=== PATIENT | female | born 1940 | race Caucasian/White ===

== ENCOUNTER 2017-04-11 15:22 | Inpatient (IN) ==
[2017-04-11 17:33] LABS: Basophils % 0.7 % (0.0-0.8); Eosinophils # 0.2 10*3/uL (0.0-0.87); Eosinophils % 3.6 % (0.00-10.9); Hematocrit 40.6 VOL% (35.7-47.0); Hemoglobin 12.8 GM/DL (12.0-16.0); Immature Granulocytes % 0.3 %; Immature Granulocytes Absolute 0.02 #; Lymphocytes # 1.4 10*3/uL (1.4-4.0); Lymphocytes % 23.7 % (21.3-54.2); Mean Corpuscular HGB Conc 31.5 GM/DL (32-36); Mean Corpuscular Hemoglobin 28 PG (27-34); Mean Corpuscular Volume 89.2 FL (87-102); Mean Platelet Volume 9.5 FL (9.6-12.0); Monocytes # 0.6 10*3/uL (0.11-0.8); Monocytes % 9.6 % (1.7-12.7); Neutrophils # 3.6 10*3/uL (1.4-7.4); Neutrophils % 62.1 % (38.7-73.9); Platelet Count 246 T/CUMM (130-400); Red Blood Count 4.55 MC/CUMM (3.8-5.5); Red Cell Distribution Width 13.8 % (9.3-17.3); White Blood Count 5.8 T/CUMM (4-12)
[2017-04-11] MEDS ORDERED: ASPIRIN 325 MG TABLET PO STA (17:42)
[2017-04-11] MEDS ORDERED: NITROGLYCERIN 2% OINT 1 INCH/GM PACK TOP STA (17:42)
[2017-04-11] MEDS ORDERED: METOPROLOL TARTRATE 25 MG TABLET PO STA (17:42)
[2017-04-11] MEDS ORDERED: MORPHINE 2 MG/1 ML SYRINGE IV STA (17:42)
[2017-04-11 17:47] LABS: Albumin 3.9 G/DL (3.4-5.0); Bilirubin,Total 0.4 MG/DL (0.2-1.0); Calcium 9.3 MG/DL (8.5-10.1); Magnesium 1.5 MG/DL (1.8-2.4); Osmolality,Calculated 286.5 MOS/KG (273-304); PT Patient Result 10.6 SECS; Partial Thromboplastin Time 24.1 SECS (0-40); Potassium 4.8 MMOL/L (3.5-5.1); Total Protein 6.9 G/DL (6.4-8.3)
[2017-04-11] MEDS ORDERED: ASPIRIN 325 MG TABLET ONE (17:57)
[2017-04-11] MEDS ORDERED: METOPROLOL TARTRATE 25 MG TABLET ONE (17:57)
[2017-04-11] MEDS ORDERED: NITROGLYCERIN 2% OINT 1 INCH/GM PACK TOP ONE (17:57)
[2017-04-11] MEDS ORDERED: MAGNESIUM SULF RIDER 2 GM in PREMIX 1 EACH IV STA (18:00)
[2017-04-11] MEDS ORDERED: MAGNESIUM SULF RIDER 50 ML IV ONE (18:19)
[2017-04-11 18:33] LABS: Apearance,Urine CLOUDY (Clear); Bacteria,Urine Occasional /HPF (Few); Blood, Urine Negative (Negative); Glucose,Urine (UA) 50 mg/dL (Negative); Granular Casts,Urine 1 /LPF (0-1); Hyaline Casts,Urine 66 /LPF (0-3); Ketones,Urine 5 mg/dL (Negative); Mucus,Urine Occasional /LPF (Occasional); Nitrite,Urine Negative (Negative); Protein,Urine Negative; RBC,Urine 1 /HPF (0-4); Squamous Epithelial Cell,Urine Occasional /HPF (0-10); Urine Color Amber (Yellow); Urine Specific Gravity 1.021 (1.001-1.035); WBC,Urine 5 /HPF (0-6)
[2017-04-11 18:34] LABS: Bilirubin,Urine Small mg/dL (Negative)
[2017-04-11] MEDS ORDERED: cefTRIAXone 1,000 MG in SODIUM CHLORIDE 0.9% 100 ML IV STA (18:40)
[2017-04-11] MEDS ORDERED: cefTRIAXone 1,000 MG VIAL ONE (18:42)
[2017-04-11] MEDS ORDERED: MAGNESIUM SULF RIDER 4 GM in PREMIX 1 EACH IV PRN (19:22)
[2017-04-11] MEDS ORDERED: MORPHINE 10 MG/1 ML VIAL IV PRN (19:22)
[2017-04-11] MEDS ORDERED: GLUCAGON 1 MG VIAL IM PRN (19:22)
[2017-04-11] MEDS ORDERED: POTASSIUM CHLORIDE 20 MEQ TABLET PO PRN (19:22)
[2017-04-11] MEDS ORDERED: PROMETHAZINE 25 MG TABLET PO PRN (19:22)
[2017-04-11] MEDS ORDERED: NITROGLYCERIN SL 0.4 MG TABLET SL PRN (19:22)
[2017-04-11] MEDS ORDERED: MAGNESIUM SULF RIDER 2 GM in PREMIX 1 EACH IV PRN (19:22)
[2017-04-11] MEDS ORDERED: ALBUTEROL 2.5 MG/3 ML NEB RESP TX PRN (19:22)
[2017-04-11] MEDS ORDERED: NON-FORMULARY MEDICATION (Albuterol Sulfate [Proair Hfa] 2 PUFF) INH PRN (19:22)
[2017-04-11] MEDS ORDERED: SODIUM CHLORIDE 0.9% 1,000 ML IV SCH (19:22)
[2017-04-11] MEDS ORDERED: DEXTROSE 50% 25 GM/50 ML VIAL IV PRN (19:22)
[2017-04-11] MEDS ORDERED: BUDESONIDE 0.5 MG/2 ML NEB RESP TX PRN (19:22)
[2017-04-11] MEDS ORDERED: CYANOCOBALAMIN 1000 MCG/1 ML VIAL IM SCH (19:30)
[2017-04-11] MEDS ORDERED: MORPHINE 10 MG/1 ML VIAL ONE (20:01)
[2017-04-11] MEDS ORDERED: ATORVASTATIN 40 MG TABLET PO SCH (21:00)
[2017-04-11] MEDS ORDERED: FERROUS SULFATE 325 MG TABLET PO SCH (21:00)
[2017-04-11] MEDS ORDERED: DONEPEZIL 10 MG TABLET PO SCH (21:00)
[2017-04-11] MEDS ORDERED: MONTELUKAST 10 MG TABLET PO SCH (21:00)
[2017-04-11] MEDS: INSULIN REGULAR 100 UNIT/ML SUBCUT SCH (22:16)
[2017-04-11] MEDS ORDERED: ATORVASTATIN 40 MG TABLET ONE (22:19)
[2017-04-11] MEDS: metFORMIN 500 MG TABLET PO SCH (22:23)
[2017-04-11] MEDS: MAGNESIUM OXIDE 400 MG TABLET PO SCH (22:23)
[2017-04-11] MEDS: PANTOPRAZOLE 40 MG TABLET PO SCH (22:24)
[2017-04-12 04:57] LABS: Basophils % 0.4 % (0.0-0.8); Eosinophils # 0.2 10*3/uL (0.0-0.87); Eosinophils % 2.7 % (0.00-10.9); Hematocrit 39.5 VOL% (35.7-47.0); Hemoglobin 12.5 GM/DL (12.0-16.0); Immature Granulocytes % 0.4 %; Immature Granulocytes Absolute 0.02 #; Lymphocytes # 1.3 10*3/uL (1.4-4.0); Lymphocytes % 23.6 % (21.3-54.2); Mean Corpuscular HGB Conc 31.6 GM/DL (32-36); Mean Corpuscular Hemoglobin 28 PG (27-34); Mean Corpuscular Volume 89.6 FL (87-102); Mean Platelet Volume 9.8 FL (9.6-12.0); Monocytes # 0.5 10*3/uL (0.11-0.8); Monocytes % 9.6 % (1.7-12.7); Neutrophils # 3.6 10*3/uL (1.4-7.4); Neutrophils % 63.3 % (38.7-73.9); Platelet Count 220 T/CUMM (130-400); Red Blood Count 4.41 MC/CUMM (3.8-5.5); Red Cell Distribution Width 13.9 % (9.3-17.3); White Blood Count 5.6 T/CUMM (4-12)
[2017-04-12 05:07] LABS: Albumin 3.6 G/DL (3.4-5.0); Bilirubin,Total 0.4 MG/DL (0.2-1.0); Calcium 9.2 MG/DL (8.5-10.1); Magnesium 2.1 MG/DL (1.8-2.4); Osmolality,Calculated 280.8 MOS/KG (273-304); Potassium 4.4 MMOL/L (3.5-5.1); Risk Ratio 2.69; Total Protein 6.8 G/DL (6.4-8.3); VLDL CHOLESTEROL 14.4 MG/DL
[2017-04-12] MEDS: NITROGLYCERIN 2% OINT 1 INCH/GM PACK TOP SCH ×2 (06:42→06:45)
[2017-04-12] MEDS ORDERED: NITROGLYCERIN 2% OINT 1 INCH/GM PACK TOP ONE (06:45)
[2017-04-12] MEDS: IPRATROPIUM 500 MCG/2.5 ML NEB RESP TX SCH ×2 (07:41→11:40)
[2017-04-12] MEDS: INSULIN REGULAR 100 UNIT/ML SUBCUT SCH ×2 (07:51→11:44)
[2017-04-12] MEDS ORDERED: PANTOPRAZOLE 40 MG TABLET PO SCH (09:00)
[2017-04-12] MEDS ORDERED: BISOPROLOL/HCTZ 2.5-6.25 MG TABLET PO SCH ×2 (09:00→12:00)
[2017-04-12] MEDS ORDERED: ASPIRIN EC 81 MG TABLET PO SCH (09:00)
[2017-04-12] MEDS ORDERED: PARoxetine 20 MG TABLET PO SCH (09:00)
[2017-04-12] MEDS ORDERED: REGADENOSON 0.4 MG/5 ML SYRINGE IV ONE (10:13)
[2017-04-12 11:34] VITALS: BP 140/67
[2017-04-12] MEDS ORDERED: ALUM/MAG/SIMETH/LIDO VISC 1:1 30 ML BOTTLE PO STA (11:35)
[2017-04-12] MEDS: MAGNESIUM OXIDE 400 MG TABLET PO SCH (11:43)
[2017-04-12] MEDS: metFORMIN 500 MG TABLET PO SCH (11:43)
[2017-04-12] MEDS: PANTOPRAZOLE 40 MG TABLET PO SCH (11:43)
[2017-04-12] MEDS ORDERED: SIMETHICONE CHEW 80 MG TABLET PO SCH (13:00)
[2017-04-12] MEDS ORDERED: NITROFURANTOIN MACRO/MONO 100 MG CAPSULE PO SCH (13:00)
[2017-04-12] MEDS ORDERED: RIVAROXABAN 20 MG TABLET PO SCH (17:00)
== END 2017-04-12 14:34 | disposition home or self-care (01) | DRG 392 ==
LOC: N.ED 15:22 → N.EDINP 18:57 → N.TELES 04-12 13:30
PROVIDERS: ADMIT Internal Medicine Cardiovascular Disease; ATTEND Internal Medicine Cardiovascular Disease

== ENCOUNTER 2018-11-22 16:02 | Inpatient (IN) ==
[2018-11-22] MEDS ORDERED: VANCOMYCIN INJ 1,000 MG in SODIUM CHLORIDE 0.9% 250 ML IV STA (17:19)
[2018-11-22] MEDS ORDERED: METOCLOPRAMIDE 10 MG/2 ML VIAL IV STA (17:19)
[2018-11-22] MEDS ORDERED: fentaNYL 100 MCG/2 ML VIAL IV STA (17:19)
[2018-11-22] MEDS: VANCOMYCIN INJ 1,000 MG in SODIUM CHLORIDE 0.9% 250 ML IV STA ×2 (17:28→18:11)
[2018-11-22 18:11] LABS: Basophils % 0.5 % (0.0-0.8); Eosinophils # 0.3 10*3/uL (0.0-0.87); Eosinophils % 3.5 % (0.00-10.9); Hematocrit 39.2 VOL% (35.7-47.0); Hemoglobin 12.5 GM/DL (12.0-16.0); Immature Granulocytes % 0.4 %; Immature Granulocytes Absolute 0.03 #; Lymphocytes # 1.4 10*3/uL (1.4-4.0); Lymphocytes % 17.9 % (21.3-54.2); Mean Corpuscular HGB Conc 31.9 GM/DL (32-36); Mean Corpuscular Volume 90.7 FL (87-102); Mean Platelet Volume 9.7 FL (9.6-12.0); Monocytes % 8.9 % (1.7-12.7); Neutrophils % 68.8 % (38.7-73.9); Platelet Count 206 T/CUMM (130-400); Red Blood Count 4.32 MC/CUMM (3.8-5.5); Red Cell Distribution Width 12.6 % (9.3-17.3); White Blood Count 7.7 T/CUMM (4-12)
[2018-11-22 18:21] LABS: INR 0.9; PT Patient Result 10.1 SECS
[2018-11-22 18:49] LABS: Alanine Aminotransferase 782 U/L (13-56); Albumin 3.5 G/DL (3.4-5.0); Alkaline Phosphatase 216 U/L (45-117); Aspartate Amino Transferase 183 U/L (0-37); Blood Urea Nitrogen 16 MG/DL (7-18); Calcium 9.4 MG/DL (8.5-10.1); Glucose 290 MG/DL (74-106); Osmolality,Calculated 292.3 MOS/KG (273-304); Total Protein 7.3 G/DL (6.4-8.3); Troponin I < 0.015 NG/ML (0.00-0.045)
[2018-11-22 19:17] LABS: Apearance,Urine CLEAR (Clear); Bilirubin,Urine Negative (Negative); Blood, Urine Negative (Negative); Glucose,Urine (UA) >=500 mg/dL (Negative); Ketones,Urine Negative (Negative); Mucus,Urine Occasional /LPF (Occasional); Nitrite,Urine Negative (Negative); Protein,Urine Negative; RBC,Urine 1 /HPF (0-4); Squamous Epithelial Cell,Urine Occasional /HPF (0-10); Urine Color Yellow (Yellow); Urine Specific Gravity 1.006 (1.001-1.035); Urine Urobilinogen < 2.0 EU/DL (0.2-1.0); WBC,Urine 12 /HPF (0-6)
[2018-11-22 19:45] LABS: Sedimentation Rate-Westergren 43 MM/HR (0-30)
[2018-11-22] MEDS ORDERED: NITROGLYCERIN SL 0.4 MG TABLET SL PRN (21:04)
[2018-11-22] MEDS ORDERED: GLUCAGON 1 MG VIAL IM PRN ×2 (21:07)
[2018-11-22] MEDS ORDERED: DEXTROSE 50% 25 GM/50 ML VIAL IV PRN ×2 (21:07)
[2018-11-22] MEDS ORDERED: MORPHINE 4 MG/1 ML VIAL IV PRN (21:07)
[2018-11-22] MEDS ORDERED: PROMETHAZINE INJ 12.5 MG in SODIUM CHLORIDE 0.9% 50 ML IV PRN (21:15)
[2018-11-23] MEDS: ALBUTEROL/IPRATROPIUM 3 ML NEB RESP TX SCH ×4 (00:16→18:58)
[2018-11-23] MEDS: FAMOTIDINE 20 MG TABLET PO SCH ×2 (00:59→21:35)
[2018-11-23] MEDS: DONEPEZIL 10 MG TABLET PO SCH ×2 (00:59→21:35)
[2018-11-23] MEDS: NORTRIPTYLINE 10 MG CAPSULE PO SCH ×2 (00:59→21:40)
[2018-11-23] MEDS: PIPERACILLIN/TAZOBACTAM 3,375 MG in SODIUM CHLORIDE 0.9% 100 ML IV SCH ×3 (01:02→16:08)
[2018-11-23] MEDS: SODIUM CHLORIDE 0.45% 1,000 ML IV SCH ×2 (01:11→23:27)
[2018-11-23] MEDS: RIVAROXABAN 2.5 MG TABLET PO SCH ×3 (01:12→21:40)
[2018-11-23 05:15] LABS: Basophils % 0.6 % (0.0-0.8); Eosinophils # 0.3 10*3/uL (0.0-0.87); Eosinophils % 4.8 % (0.00-10.9); Hematocrit 35.3 VOL% (35.7-47.0); Hemoglobin 11.4 GM/DL (12.0-16.0); Immature Granulocytes % 0.4 %; Immature Granulocytes Absolute 0.02 #; Mean Corpuscular HGB Conc 32.3 GM/DL (32-36); Mean Corpuscular Volume 90.3 FL (87-102); Mean Platelet Volume 10.3 FL (9.6-12.0); Monocytes % 10.2 % (1.7-12.7); Platelet Count 184 T/CUMM (130-400); Red Blood Count 3.91 MC/CUMM (3.8-5.5); Red Cell Distribution Width 12.8 % (9.3-17.3); White Blood Count 5.2 T/CUMM (4-12)
[2018-11-23 05:46] LABS: Calcium 8.9 MG/DL (8.5-10.1); Osmolality,Calculated 290.8 MOS/KG (273-304); Risk Ratio 2.97; VLDL CHOLESTEROL 21.4 MG/DL
[2018-11-23] MEDS: PANTOPRAZOLE 40 MG TABLET PO SCH (09:29)
[2018-11-23] MEDS: INSULIN LISPRO 100 UNIT/ML SUBCUT SCH ×4 (09:29→21:35)
[2018-11-23] MEDS: ASPIRIN EC 81 MG TABLET PO SCH (09:29)
[2018-11-23] MEDS: MAGNESIUM CHLORIDE 64 MG TABLET PO SCH ×2 (09:29→21:34)
[2018-11-23] MEDS: PARoxetine 10 MG TABLET PO SCH (09:29)
[2018-11-23] MEDS: FERROUS SULFATE 325 MG TABLET PO SCH ×2 (09:29→21:40)
[2018-11-23] MEDS: CETIRIZINE 10 MG TABLET PO SCH (09:30)
[2018-11-23] MEDS: BISOPROLOL 5 MG TABLET PO SCH (09:30)
[2018-11-23] MEDS ORDERED: LIDOCAINE 1% 20 ML VIAL ONE (11:41)
[2018-11-23] MEDS ORDERED: fentaNYL 100 MCG/2 ML VIAL ONE (12:41)
[2018-11-23] MEDS ORDERED: SODIUM CHLORIDE 0.9% 100 ML IV ONE (12:41)
[2018-11-23] MEDS ORDERED: PROPOFOL 200 MG/20 ML VIAL IV ONE (12:41)
[2018-11-23] MEDS: VANCOMYCIN INJ 1,250 MG in SODIUM CHLORIDE 0.9% 250 ML IV SCH (13:38)
[2018-11-23] MEDS ORDERED: hydrALAZINE 20 MG/1 ML VIAL IV PRN (15:17)
[2018-11-23] MEDS: LISINOPRIL 20 MG TABLET PO SCH (16:07)
[2018-11-23] MEDS: ZINC OXIDE PASTE 113 GM TUBE TOP SCH ×2 (16:30→21:40)
[2018-11-23] MEDS: hydroCHLOROthiazide 25 MG TABLET PO SCH (16:31)
[2018-11-23] MEDS: ATORVASTATIN 40 MG TABLET PO SCH (21:35)
[2018-11-24] MEDS: ALBUTEROL/IPRATROPIUM 3 ML NEB RESP TX SCH ×4 (00:02→19:33)
[2018-11-24] MEDS: PIPERACILLIN/TAZOBACTAM 3,375 MG in SODIUM CHLORIDE 0.9% 100 ML IV SCH ×3 (03:59→19:05)
[2018-11-24] MEDS: ASPIRIN EC 81 MG TABLET PO SCH (09:51)
[2018-11-24] MEDS: hydroCHLOROthiazide 25 MG TABLET PO SCH (09:52)
[2018-11-24] MEDS: PARoxetine 10 MG TABLET PO SCH (09:52)
[2018-11-24] MEDS: FERROUS SULFATE 325 MG TABLET PO SCH ×2 (09:52→21:18)
[2018-11-24] MEDS: LISINOPRIL 20 MG TABLET PO SCH (09:53)
[2018-11-24] MEDS: PANTOPRAZOLE 40 MG TABLET PO SCH (09:53)
[2018-11-24] MEDS: CETIRIZINE 10 MG TABLET PO SCH (09:54)
[2018-11-24] MEDS: BISOPROLOL 5 MG TABLET PO SCH (09:54)
[2018-11-24] MEDS: MAGNESIUM CHLORIDE 64 MG TABLET PO SCH ×2 (09:54→21:18)
[2018-11-24] MEDS: RIVAROXABAN 2.5 MG TABLET PO SCH ×2 (09:57→23:01)
[2018-11-24] MEDS: VANCOMYCIN INJ 1,250 MG in SODIUM CHLORIDE 0.9% 250 ML IV SCH (09:59)
[2018-11-24] MEDS: ZINC OXIDE PASTE 113 GM TUBE TOP SCH ×2 (10:02→21:19)
[2018-11-24] MEDS: INSULIN LISPRO 100 UNIT/ML SUBCUT SCH ×4 (10:24→21:18)
[2018-11-24] MEDS: FAMOTIDINE 20 MG TABLET PO SCH (21:18)
[2018-11-24] MEDS: ATORVASTATIN 40 MG TABLET PO SCH (21:18)
[2018-11-24] MEDS: NORTRIPTYLINE 10 MG CAPSULE PO SCH (21:18)
[2018-11-24] MEDS: DONEPEZIL 10 MG TABLET PO SCH (21:18)
[2018-11-24] MEDS: INSULIN GLARGINE 100 UNIT/ML SUBCUT SCH (21:19)
[2018-11-25] MEDS: ALBUTEROL/IPRATROPIUM 3 ML NEB RESP TX SCH ×4 (00:28→19:10)
[2018-11-25] MEDS: VANCOMYCIN INJ 1,250 MG in SODIUM CHLORIDE 0.9% 250 ML IV SCH ×2 (02:26→23:00)
[2018-11-25] MEDS: PIPERACILLIN/TAZOBACTAM 3,375 MG in SODIUM CHLORIDE 0.9% 100 ML IV SCH ×3 (04:46→19:03)
[2018-11-25] MEDS: SODIUM CHLORIDE 0.45% 1,000 ML IV SCH ×3 (05:28→09:30)
[2018-11-25 07:04] LABS: Basophils % 0.4 % (0.0-0.8); Eosinophils # 0.3 10*3/uL (0.0-0.87); Eosinophils % 5.5 % (0.00-10.9); Hemoglobin 11.9 GM/DL (12.0-16.0); Immature Granulocytes % 0.4 %; Immature Granulocytes Absolute 0.02 #; Lymphocytes # 1.1 10*3/uL (1.4-4.0); Lymphocytes % 21.3 % (21.3-54.2); Mean Corpuscular HGB Conc 31.3 GM/DL (32-36); Mean Corpuscular Volume 91.3 FL (87-102); Mean Platelet Volume 9.3 FL (9.6-12.0); Neutrophils % 61.4 % (38.7-73.9); Platelet Count 206 T/CUMM (130-400); Red Blood Count 4.16 MC/CUMM (3.8-5.5); Red Cell Distribution Width 12.9 % (9.3-17.3); White Blood Count 4.9 T/CUMM (4-12)
[2018-11-25 07:23] LABS: Albumin 2.9 G/DL (3.4-5.0); Bilirubin,Total 0.4 MG/DL (0.2-1.0); Calcium 9.5 MG/DL (8.5-10.1); Total Protein 6.5 G/DL (6.4-8.3)
[2018-11-25] MEDS: ASPIRIN EC 81 MG TABLET PO SCH (09:42)
[2018-11-25] MEDS: INSULIN LISPRO 100 UNIT/ML SUBCUT SCH ×4 (09:42→21:43)
[2018-11-25] MEDS: FERROUS SULFATE 325 MG TABLET PO SCH ×2 (09:43→21:43)
[2018-11-25] MEDS: hydroCHLOROthiazide 25 MG TABLET PO SCH (09:43)
[2018-11-25] MEDS: MAGNESIUM CHLORIDE 64 MG TABLET PO SCH ×2 (09:45→21:43)
[2018-11-25] MEDS: PARoxetine 10 MG TABLET PO SCH (09:45)
[2018-11-25] MEDS: LISINOPRIL 20 MG TABLET PO SCH (09:45)
[2018-11-25] MEDS: PANTOPRAZOLE 40 MG TABLET PO SCH (09:45)
[2018-11-25] MEDS: CETIRIZINE 10 MG TABLET PO SCH (09:47)
[2018-11-25] MEDS: RIVAROXABAN 2.5 MG TABLET PO SCH ×2 (09:49→21:44)
[2018-11-25] MEDS: ZINC OXIDE PASTE 113 GM TUBE TOP SCH ×2 (10:03→21:44)
[2018-11-25] MEDS: BISOPROLOL 5 MG TABLET PO SCH ×2 (10:11→21:43)
[2018-11-25] MEDS ORDERED: MAGNESIUM SULF RIDER 2 GM in PREMIX 1 EACH IV ONE (14:46)
[2018-11-25] MEDS ORDERED: ALPRAZolam 0.25 MG TABLET PO PRN (20:40)
[2018-11-25] MEDS: INSULIN GLARGINE 100 UNIT/ML SUBCUT SCH (21:42)
[2018-11-25] MEDS: NORTRIPTYLINE 10 MG CAPSULE PO SCH (21:43)
[2018-11-25] MEDS: DONEPEZIL 10 MG TABLET PO SCH (21:44)
[2018-11-25] MEDS: ATORVASTATIN 40 MG TABLET PO SCH (21:44)
[2018-11-25] MEDS: FAMOTIDINE 20 MG TABLET PO SCH (21:44)
[2018-11-26] MEDS: ALBUTEROL/IPRATROPIUM 3 ML NEB RESP TX SCH ×4 (01:30→20:02)
[2018-11-26] MEDS: SODIUM CHLORIDE 0.45% 1,000 ML IV SCH ×2 (02:28→06:49)
[2018-11-26] MEDS: PIPERACILLIN/TAZOBACTAM 3,375 MG in SODIUM CHLORIDE 0.9% 100 ML IV SCH ×3 (02:49→18:34)
[2018-11-26 05:24] LABS: Basophils % 0.7 % (0.0-0.8); Eosinophils # 0.2 10*3/uL (0.0-0.87); Eosinophils % 4.5 % (0.00-10.9); Hemoglobin 10.9 GM/DL (12.0-16.0); Immature Granulocytes % 0.6 %; Immature Granulocytes Absolute 0.03 #; Lymphocytes # 0.8 10*3/uL (1.4-4.0); Lymphocytes % 15.4 % (21.3-54.2); Mean Corpuscular HGB Conc 32.1 GM/DL (32-36); Mean Corpuscular Volume 91.6 FL (87-102); Mean Platelet Volume 10.2 FL (9.6-12.0); Monocytes % 10.4 % (1.7-12.7); Neutrophils % 68.4 % (38.7-73.9); Platelet Count 213 T/CUMM (130-400); Red Blood Count 3.71 MC/CUMM (3.8-5.5); Red Cell Distribution Width 12.9 % (9.3-17.3); White Blood Count 5.4 T/CUMM (4-12)
[2018-11-26 05:38] LABS: Albumin 2.7 G/DL (3.4-5.0); Bilirubin,Total 0.4 MG/DL (0.2-1.0); Calcium 8.9 MG/DL (8.5-10.1); Osmolality,Calculated 295.8 MOS/KG (273-304)
[2018-11-26] MEDS: INSULIN LISPRO 100 UNIT/ML SUBCUT SCH ×4 (08:56→20:53)
[2018-11-26] MEDS: FERROUS SULFATE 325 MG TABLET PO SCH ×2 (08:57→20:52)
[2018-11-26] MEDS: ASPIRIN EC 81 MG TABLET PO SCH (08:57)
[2018-11-26] MEDS: hydroCHLOROthiazide 25 MG TABLET PO SCH (08:58)
[2018-11-26] MEDS: PARoxetine 10 MG TABLET PO SCH (08:58)
[2018-11-26] MEDS: MAGNESIUM CHLORIDE 64 MG TABLET PO SCH ×2 (08:59→20:52)
[2018-11-26] MEDS: CETIRIZINE 10 MG TABLET PO SCH (08:59)
[2018-11-26] MEDS: PANTOPRAZOLE 40 MG TABLET PO SCH (08:59)
[2018-11-26] MEDS: LISINOPRIL 20 MG TABLET PO SCH (08:59)
[2018-11-26] MEDS: RIVAROXABAN 2.5 MG TABLET PO SCH ×2 (09:02→20:51)
[2018-11-26] MEDS ORDERED: FUROSEMIDE 40 MG/4 ML VIAL IV ONE (12:58)
[2018-11-26] MEDS: ZINC OXIDE PASTE 113 GM TUBE TOP SCH ×2 (13:01→20:52)
[2018-11-26] MEDS: VANCOMYCIN INJ 1,250 MG in SODIUM CHLORIDE 0.9% 250 ML IV SCH (15:38)
[2018-11-26] MEDS: DONEPEZIL 10 MG TABLET PO SCH (20:51)
[2018-11-26] MEDS: ATORVASTATIN 40 MG TABLET PO SCH (20:51)
[2018-11-26] MEDS: NORTRIPTYLINE 10 MG CAPSULE PO SCH (20:51)
[2018-11-26] MEDS: FAMOTIDINE 20 MG TABLET PO SCH (20:52)
[2018-11-26] MEDS: INSULIN GLARGINE 100 UNIT/ML SUBCUT SCH (20:52)
[2018-11-26] MEDS: BISOPROLOL 5 MG TABLET PO SCH (20:52)
[2018-11-27] MEDS: ALBUTEROL/IPRATROPIUM 3 ML NEB RESP TX SCH ×2 (01:05→07:01)
[2018-11-27] MEDS: PIPERACILLIN/TAZOBACTAM 3,375 MG in SODIUM CHLORIDE 0.9% 100 ML IV SCH (02:38)
[2018-11-27 05:42] LABS: Basophils # 0.1 10*3/uL (0.0-0.2); Eosinophils # 0.3 10*3/uL (0.0-0.87); Eosinophils % 6.7 % (0.00-10.9); Hematocrit 37.1 VOL% (35.7-47.0); Hemoglobin 11.6 GM/DL (12.0-16.0); Immature Granulocytes % 0.4 %; Immature Granulocytes Absolute 0.02 #; Lymphocytes # 1.2 10*3/uL (1.4-4.0); Lymphocytes % 23.8 % (21.3-54.2); Mean Corpuscular HGB Conc 31.3 GM/DL (32-36); Mean Corpuscular Volume 92.1 FL (87-102); Mean Platelet Volume 9.7 FL (9.6-12.0); Monocytes % 12.7 % (1.7-12.7); Neutrophils % 55.4 % (38.7-73.9); Platelet Count 219 T/CUMM (130-400); Red Blood Count 4.03 MC/CUMM (3.8-5.5); Red Cell Distribution Width 12.9 % (9.3-17.3)
[2018-11-27 06:08] LABS: Alanine Aminotransferase 146 U/L (13-56); Albumin 2.9 G/DL (3.4-5.0); Alkaline Phosphatase 121 U/L (45-117); Aspartate Amino Transferase 14 U/L (0-37); Bilirubin,Total < 0.39 MG/DL (0.2-1.0); Blood Urea Nitrogen 16 MG/DL (7-18); Glucose 229 MG/DL (74-106); Osmolality,Calculated 290.1 MOS/KG (273-304); Total Protein 6.5 G/DL (6.4-8.3)
[2018-11-27] MEDS: INSULIN LISPRO 100 UNIT/ML SUBCUT SCH ×2 (08:30→12:57)
[2018-11-27] MEDS ORDERED: ceFAZolin 1,000 MG in SYRINGE 1 EACH IV SCH (09:00)
[2018-11-27] MEDS: ASPIRIN EC 81 MG TABLET PO SCH (09:14)
[2018-11-27] MEDS: hydroCHLOROthiazide 25 MG TABLET PO SCH (09:15)
[2018-11-27] MEDS: MAGNESIUM CHLORIDE 64 MG TABLET PO SCH (09:15)
[2018-11-27] MEDS: PARoxetine 10 MG TABLET PO SCH (09:15)
[2018-11-27] MEDS: CETIRIZINE 10 MG TABLET PO SCH (09:15)
[2018-11-27] MEDS: LISINOPRIL 20 MG TABLET PO SCH (09:15)
[2018-11-27] MEDS: RIVAROXABAN 2.5 MG TABLET PO SCH (09:16)
[2018-11-27] MEDS: ZINC OXIDE PASTE 113 GM TUBE TOP SCH (09:16)
[2018-11-27] MEDS: FERROUS SULFATE 325 MG TABLET PO SCH (09:16)
[2018-11-27] MEDS: PANTOPRAZOLE 40 MG TABLET PO SCH (09:16)
[2018-11-27 11:50] VITALS: BP 112/97
== END 2018-11-27 13:15 | disposition home health service (06) | DRG 264 ==
LOC: N.ED 16:02 → SUATTDRO 21:07 → N.EDINP 21:07 → N.3E 23:03
PROVIDERS: ADMIT Family Medicine; ATTEND Internal Medicine

== ENCOUNTER 2022-01-13 14:45 | Inpatient (IN) ==
[2022-01-13] MEDS ORDERED: PROMETHAZINE 25 MG/1 ML VIAL ONE (15:55)
[2022-01-13] MEDS ORDERED: PROMETHAZINE 25 MG/1 ML VIAL IM STA (16:06)
[2022-01-13] MEDS ORDERED: SODIUM CHLORIDE 0.9% 1,000 ML IV STA (16:20)
[2022-01-13 16:24] LABS: Basophils % 0.3 % (0.0-0.8); Eosinophils # 0.1 10*3/uL (0.0-0.87); Eosinophils % 1.6 % (0.00-10.9); Hematocrit 35.1 VOL% (35.7-47.0); Hemoglobin 10.8 GM/DL (12.0-16.0); Immature Granulocytes % 0.5 %; Immature Granulocytes Absolute 0.04 #; Lymphocytes # 0.3 10*3/uL (1.4-4.0); Lymphocytes % 3.5 % (21.3-54.2); Mean Corpuscular HGB Conc 30.8 GM/DL (32-36); Mean Corpuscular Volume 90.7 FL (87-102); Mean Platelet Volume 9.6 FL (9.6-12.0); Monocytes # 0.3 10*3/uL (0.11-0.8); Monocytes % 3.8 % (1.7-12.7); Neutrophils % 90.3 % (38.7-73.9); Platelet Count 220 T/CUMM (130-400); Red Blood Count 3.87 MC/CUMM (3.8-5.5); Red Cell Distribution Width 13.1 % (9.3-17.3)
[2022-01-13 16:32] LABS: INR 1.1; PT Patient Result 12.2 SECS (10.1-12.1); Partial Thromboplastin Time 26.1 SECS (23.7-32.9)
[2022-01-13 16:59] LABS: Alanine Aminotransferase 14 U/L (13-56); Albumin 2.5 G/DL (3.4-5.0); Alkaline Phosphatase 67 U/L (45-117); Amylase 16 U/L (25-115); Aspartate Amino Transferase 10 U/L (0-37); Bilirubin,Total < 0.39 MG/DL (0.20-1.00); Blood Urea Nitrogen 12 MG/DL (7-18); Calcium 6.4 MG/DL (8.5-10.1); Carbon Dioxide 20 MMOL/L (21-32); Chloride 120 MMOL/L (98-107); Glucose 121 MG/DL (74-106); Osmolality,Calculated 294.3 MOS/KG (273-304); Potassium 2.8 MMOL/L (3.5-5.1); Sodium 148 MMOL/L (136-145); Total Protein 5.1 G/DL (6.4-8.2)
[2022-01-13 17:15] LABS: Band Neutrophils 15 % (0-10); Eosinophils 2 % (0-10); Total Cells Counted 100
[2022-01-13 17:16] LABS: Platelet Estimate Adequate
[2022-01-13 17:17] LABS: Polychromasia Slight
[2022-01-13] MEDS ORDERED: METOCLOPRAMIDE 10 MG/2 ML VIAL ONE (17:33)
[2022-01-13] MEDS ORDERED: METOCLOPRAMIDE 10 MG/2 ML VIAL IV STA (17:33)
[2022-01-13] MEDS ORDERED: POTASSIUM CHLORIDE 20 MEQ TABLET PO STA (19:08)
[2022-01-13 19:36] LABS: Glucose,Urine (UA) Negative (Negative); Hyaline Casts,Urine 3 /LPF (0-3); Ketones,Urine Trace mg/dL (Negative); Mucus,Urine Occasional /LPF (Occasional); Protein,Urine 100 mg/dL (Negative); RBC,Urine 1 /HPF (0-4); Urine Appearance Clear (Clear); Urine Color Yellow (Yellow); Urine Specific Gravity 1.015 (1.001-1.035)
[2022-01-13 19:37] LABS: Bilirubin,Urine Negative (Negative); Blood, Urine Trace mg/dL (Negative); Nitrite,Urine Negative (Negative); Urine Urobilinogen 0.2 eU/dL (<2.0)
[2022-01-13] MEDS ORDERED: PROMETHAZINE 25 MG/1 ML VIAL IV PRN (20:28)
[2022-01-13] MEDS ORDERED: ACETAMINOPHEN 325 MG TABLET PO PRN (20:28)
[2022-01-13] MEDS ORDERED: hydrALAZINE 20 MG/1 ML VIAL IV PRN (20:28)
[2022-01-13] MEDS ORDERED: PROMETHAZINE INJ 12.5 MG in SODIUM CHLORIDE 0.9% 50 ML IV PRN (20:45)
[2022-01-13] MEDS ORDERED: MAGNESIUM SULF RIDER 2 GM/50 ML PREMIX IV STA (20:57)
[2022-01-13] MEDS: PANTOPRAZOLE 40 MG VIAL IV SCH (21:01)
[2022-01-13] MEDS: LACTATED RINGERS 1,000 ML IV SCH (21:01)
[2022-01-13] MEDS: cefTRIAXone 1,000 MG in SODIUM CHLORIDE 0.9% 100 ML IV SCH (21:02)
[2022-01-13] MEDS ORDERED: ALBUTEROL/IPRATROPIUM 3 ML NEB RESP TX ONE (23:55)
[2022-01-14] MEDS: INSULIN LISPRO 100 UNIT/ML SUBCUT SCH ×4 (00:43→17:28)
[2022-01-14] MEDS: METOCLOPRAMIDE 10 MG/2 ML VIAL IV SCH ×4 (00:53→17:28)
[2022-01-14] MEDS: AZITHROMYCIN INJ 500 MG in SODIUM CHLORIDE 0.9% 250 ML IV SCH ×2 (00:53→23:00)
[2022-01-14 04:22] LABS: Basophils % 0.2 % (0.0-0.8); Eosinophils % 0.3 % (0.00-10.9); Hematocrit 33.7 VOL% (35.7-47.0); Hemoglobin 10.6 GM/DL (12.0-16.0); Immature Granulocytes % 0.4 %; Immature Granulocytes Absolute 0.05 #; Lymphocytes # 0.6 10*3/uL (1.4-4.0); Lymphocytes % 4.9 % (21.3-54.2); Mean Corpuscular HGB Conc 31.5 GM/DL (32-36); Mean Corpuscular Volume 88.7 FL (87-102); Mean Platelet Volume 9.6 FL (9.6-12.0); Monocytes # 0.8 10*3/uL (0.11-0.8); Monocytes % 6.8 % (1.7-12.7); Neutrophils % 87.4 % (38.7-73.9); Platelet Count 207 T/CUMM (130-400); Red Cell Distribution Width 13.3 % (9.3-17.3); White Blood Count 11.1 T/CUMM (4-12)
[2022-01-14 04:31] LABS: Calcium 8.2 MG/DL (8.5-10.1); Osmolality,Calculated 278.5 MOS/KG (273-304); Potassium 4.7 MMOL/L (3.5-5.1)
[2022-01-14 04:39] LABS: Folate 11.64 NG/ML (5.38-24.0)
[2022-01-14 04:42] LABS: % Iron Saturation 10.3 % (18-50); Ferritin 50.1 ng/mL (8-252)
[2022-01-14 04:47] LABS: Band Neutrophils 9 % (0-10); Hypochromia Slight; Lymphocytes 4 % (20-55); Microcytosis Slight; Platelet Estimate Adequate; Total Cells Counted 100
[2022-01-14] MEDS: ALBUTEROL/IPRATROPIUM 3 ML NEB RESP TX SCH ×4 (07:05→19:25)
[2022-01-14] MEDS: PANTOPRAZOLE 40 MG VIAL IV SCH (09:15)
[2022-01-14] MEDS ORDERED: FERRIC GLUCONATE COMPLEX 125 MG in SODIUM CHLORIDE 0.9% 100 ML IV SCH (11:00)
[2022-01-14] MEDS: LACTATED RINGERS 1,000 ML IV SCH ×2 (11:31→17:02)
[2022-01-14] MEDS ORDERED: DEXTROSE 10% 250 ML BAG IV PRN (12:48)
[2022-01-14] MEDS ORDERED: DEXTROSE 10% 250 ML IV ONE (12:50)
[2022-01-14] MEDS ORDERED: ACETAMINOPHEN 325 MG TABLET PO PRN (14:37)
[2022-01-14] MEDS: DONEPEZIL 10 MG TABLET PO SCH (21:59)
[2022-01-14] MEDS: PARoxetine 20 MG TABLET PO SCH (22:00)
[2022-01-14] MEDS: ATORVASTATIN 40 MG TABLET PO SCH (22:00)
[2022-01-14] MEDS: cefTRIAXone 1,000 MG in SODIUM CHLORIDE 0.9% 100 ML IV SCH (22:00)
[2022-01-14] MEDS: QUEtiapine 25 MG TABLET PO SCH (22:01)
[2022-01-15] MEDS: ALBUTEROL/IPRATROPIUM 3 ML NEB RESP TX SCH ×4 (00:15→19:34)
[2022-01-15] MEDS: METOCLOPRAMIDE 10 MG/2 ML VIAL IV SCH ×4 (01:00→18:16)
[2022-01-15] MEDS: INSULIN LISPRO 100 UNIT/ML SUBCUT SCH ×5 (01:11→23:50)
[2022-01-15] MEDS: LACTATED RINGERS 1,000 ML IV SCH ×3 (06:01→23:50)
[2022-01-15 08:45] LABS: Basophils % 0.3 % (0.0-0.8); Eosinophils # 0.3 10*3/uL (0.0-0.87); Eosinophils % 5.2 % (0.00-10.9); Hematocrit 34.3 VOL% (35.7-47.0); Hemoglobin 10.6 GM/DL (12.0-16.0); Immature Granulocytes % 0.5 %; Immature Granulocytes Absolute 0.03 #; Lymphocytes # 1.3 10*3/uL (1.4-4.0); Lymphocytes % 20.1 % (21.3-54.2); Mean Corpuscular HGB Conc 30.9 GM/DL (32-36); Mean Corpuscular Volume 91.2 FL (87-102); Mean Platelet Volume 9.5 FL (9.6-12.0); Monocytes # 0.6 10*3/uL (0.11-0.8); Neutrophils % 63.9 % (38.7-73.9); Platelet Count 202 T/CUMM (130-400); Red Blood Count 3.76 MC/CUMM (3.8-5.5); Red Cell Distribution Width 13.5 % (9.3-17.3); White Blood Count 6.2 T/CUMM (4-12)
[2022-01-15 08:54] LABS: Calcium 8.4 MG/DL (8.5-10.1); Potassium 4.1 MMOL/L (3.5-5.1)
[2022-01-15] MEDS: sitaGLIPtin 100 MG TABLET PO SCH (08:54)
[2022-01-15] MEDS: CHOLECALCIFEROL 1,000 UNIT TABLET PO SCH (08:55)
[2022-01-15] MEDS: CETIRIZINE 10 MG TABLET PO SCH (08:55)
[2022-01-15] MEDS: NEBIVOLOL 10 MG TABLET PO SCH (08:55)
[2022-01-15] MEDS: MAGNESIUM OXIDE 400 MG TABLET PO SCH (08:55)
[2022-01-15] MEDS ORDERED: IRON SUCROSE 200 MG in SODIUM CHLORIDE 0.9% 100 ML IV SCH (09:00)
[2022-01-15] MEDS: QUEtiapine 25 MG TABLET PO SCH ×2 (09:02→20:42)
[2022-01-15] MEDS: PANTOPRAZOLE 40 MG TABLET PO SCH (09:03)
[2022-01-15] MEDS: AZITHROMYCIN 250 MG TABLET PO SCH (09:03)
[2022-01-15] MEDS: FERRIC GLUCONATE COMPLEX 125 MG in SODIUM CHLORIDE 0.9% 100 ML IV SCH (09:03)
[2022-01-15] MEDS: POLYETHYLENE GLYCOL POWDER 17 GM PACK PO SCH (16:25)
[2022-01-15] MEDS: cefTRIAXone 1,000 MG in SODIUM CHLORIDE 0.9% 100 ML IV SCH (20:42)
[2022-01-15] MEDS: DONEPEZIL 10 MG TABLET PO SCH (20:42)
[2022-01-15] MEDS: ATORVASTATIN 40 MG TABLET PO SCH (20:42)
[2022-01-15] MEDS: PARoxetine 20 MG TABLET PO SCH (20:43)
[2022-01-15] MEDS: FLUTICASONE 50 MCG NASAL SPRAY 16 GM BOTTLE BOTH NARES SCH (20:47)
[2022-01-16] MEDS: ALBUTEROL/IPRATROPIUM 3 ML NEB RESP TX SCH ×3 (00:15→14:07)
[2022-01-16] MEDS: METOCLOPRAMIDE 10 MG/2 ML VIAL IV SCH ×3 (01:03→12:59)
[2022-01-16] MEDS: PANTOPRAZOLE 40 MG TABLET PO SCH (05:33)
[2022-01-16 05:43] LABS: Basophils % 0.5 % (0.0-0.8); Eosinophils # 0.3 10*3/uL (0.0-0.87); Eosinophils % 5.7 % (0.00-10.9); Hematocrit 33.1 VOL% (35.7-47.0); Hemoglobin 10.2 GM/DL (12.0-16.0); Immature Granulocytes % 0.8 %; Immature Granulocytes Absolute 0.05 #; Lymphocytes # 0.8 10*3/uL (1.4-4.0); Mean Corpuscular HGB Conc 30.8 GM/DL (32-36); Mean Corpuscular Volume 89.9 FL (87-102); Mean Platelet Volume 9.7 FL (9.6-12.0); Monocytes # 0.6 10*3/uL (0.11-0.8); Monocytes % 10.5 % (1.7-12.7); Neutrophils % 68.5 % (38.7-73.9); Platelet Count 206 T/CUMM (130-400); Red Blood Count 3.68 MC/CUMM (3.8-5.5); Red Cell Distribution Width 13.5 % (9.3-17.3); White Blood Count 5.9 T/CUMM (4-12)
[2022-01-16] MEDS: INSULIN LISPRO 100 UNIT/ML SUBCUT SCH ×2 (05:53→12:56)
[2022-01-16 06:05] LABS: Calcium 8.4 MG/DL (8.5-10.1); Potassium 3.8 MMOL/L (3.5-5.1)
[2022-01-16] MEDS ORDERED: MAGNESIUM SULF RIDER 4 GM/100 ML PREMIX IV PRN (07:59)
[2022-01-16] MEDS ORDERED: MAGNESIUM SULF RIDER 2 GM/50 ML PREMIX IV PRN (07:59)
[2022-01-16] MEDS: NEBIVOLOL 10 MG TABLET PO SCH (09:09)
[2022-01-16] MEDS: AZITHROMYCIN 250 MG TABLET PO SCH (09:09)
[2022-01-16] MEDS: MAGNESIUM OXIDE 400 MG TABLET PO SCH (09:09)
[2022-01-16] MEDS: CHOLECALCIFEROL 1,000 UNIT TABLET PO SCH (09:09)
[2022-01-16] MEDS: sitaGLIPtin 100 MG TABLET PO SCH (09:09)
[2022-01-16] MEDS: CETIRIZINE 10 MG TABLET PO SCH (09:09)
[2022-01-16] MEDS: QUEtiapine 25 MG TABLET PO SCH (09:10)
[2022-01-16] MEDS: FERRIC GLUCONATE COMPLEX 125 MG in SODIUM CHLORIDE 0.9% 100 ML IV SCH (09:18)
[2022-01-16] MEDS: POLYETHYLENE GLYCOL POWDER 17 GM PACK PO SCH (09:19)
[2022-01-16] MEDS: FLUTICASONE 50 MCG NASAL SPRAY 16 GM BOTTLE BOTH NARES SCH (09:20)
[2022-01-16] MEDS: LACTATED RINGERS 1,000 ML IV SCH (09:24)
[2022-01-16 11:54] VITALS: BP 136/55
== END 2022-01-16 14:35 | disposition home health service (06) | DRG 391 ==
LOC: N.ED 14:45 → N.EDINP 20:23 → N.5E 01-14 11:27
PROVIDERS: ADMIT Internal Medicine; ATTEND Internal Medicine